=== PATIENT | female | born 1945 | race Two or more races ===

== ENCOUNTER 2017-08-21 10:00 | Inpatient (IN) | payer OTHER ==
[~2017-08-21] VITALS: Ht 160 cm; Wt 78.5 kg
[2017-08-22] MEDS ORDERED: CILOSTAZOL100 MG PO (07:43)
[2017-08-22] MEDS ORDERED: VALSARTAN160 MG PO (07:43)
[2017-08-22] MEDS ORDERED: GABAPENT PO (07:44)
[2017-08-22] MEDS ORDERED: GABAPENTIN400 MG PO (07:45)
[2017-08-22] MEDS ORDERED: [UNRECOGNIZED DRUG - OTHER] PO (07:46)
[2017-08-22] MEDS ORDERED: GLIPIZIDE ER10 MG PO (07:48)
[2017-08-22] MEDS ORDERED: FENOFIBRATE PO (07:49)
== END 2017-08-28 10:29 | disposition home or self-care (01) | DRG 330 ==
LOC: EDSTATUS 10:00 → ADM 10:00 → O/R 08-25 05:43 → SURG 08-25 05:43
PROVIDERS: Colon & Rectal Surgery
PROC: 0DN84ZZ Release Small Intestine, Percutaneous Endoscopic Approach (ICD-10-PCS; 2017-08-25)
PROC: 0DQ84ZZ Repair Small Intestine, Percutaneous Endoscopic Approach (ICD-10-PCS; 2017-08-25)
PROC: 0DJD8ZZ Inspection of Lower Intestinal Tract, Via Natural or Artificial Opening Endoscopic (ICD-10-PCS; 2017-08-25)
PROC: 4A033R1 Measurement of Arterial Saturation, Peripheral, Percutaneous Approach (ICD-10-PCS; 2017-08-25)
PROC: 0DTN4ZZ Resection of Sigmoid Colon, Percutaneous Endoscopic Approach (ICD-10-PCS; principal; 2017-08-25 07:00)
PROC: 3E0F7GC Introduction of Other Therapeutic Substance into Respiratory Tract, Via Natural or Artificial Opening (ICD-10-PCS; 2017-08-27)
DX: K57.32 Diverticulitis of large intestine without perforation or abscess without bleeding (principal); K56.51 Intestinal adhesions [bands], with partial obstruction; K91.71 Accidental puncture and laceration of a digestive system organ or structure during a digestive system procedure; E11.9 Type 2 diabetes mellitus without complications; D64.89 Other specified anemias; I10 Essential (primary) hypertension

== ENCOUNTER 2017-08-21 10:10 | Outpatient (CLI) | payer OTHER ==
[2017-08-22] MEDS ORDERED: VALSARTAN160 MG PO (07:43)
[2017-08-22] MEDS ORDERED: CILOSTAZOL100 MG PO (07:43)
[2017-08-22] MEDS ORDERED: GABAPENT PO (07:44)
[2017-08-22] MEDS ORDERED: GABAPENTIN400 MG PO (07:45)
[2017-08-22] MEDS ORDERED: [UNRECOGNIZED DRUG - OTHER] PO (07:46)
[2017-08-22] MEDS ORDERED: GLIPIZIDE ER10 MG PO (07:48)
[2017-08-22] MEDS ORDERED: FENOFIBRATE PO (07:49)
== END 2017-08-21 10:15 | disposition home or self-care (01) ==
LOC: RAD 10:10
DX: K57.32 Diverticulitis of large intestine without perforation or abscess without bleeding (principal); R10.32 Left lower quadrant pain; R15.9 Full incontinence of feces; K59.00 Constipation, unspecified; Z01.818 Encounter for other preprocedural examination

== ENCOUNTER 2020-10-02 06:50 | Day surgery (SDC) | payer OTHER ==
[~2020-10-02 06:50] MED LIST: AVAPRO75 MG PO; CILOSTAZOL100 MG PO; FENOFIBRATE PO; GABAPENT PO; GABAPENTIN400 MG PO; GLIPIZIDE ER10 MG PO; METFORMIN HCL750 MG PO; VALSARTAN160 MG PO; [UNRECOGNIZED DRUG - OTHER] PO
== END 2020-10-02 15:25 | disposition home or self-care (01) ==
LOC: CIR.AMB 06:50
PROVIDERS: ATTEND Colon & Rectal Surgery
DX: R15.9 Full incontinence of feces (principal); Z20.822 Contact with and (suspected) exposure to COVID-19
CPT/HCPCS: 64581; 95971; C1778

== ENCOUNTER 2020-10-21 09:00 | Day surgery (SDC) | payer OTHER | END 2020-10-21 13:20 | disposition home or self-care (01) | LOC: CIR.AMB 09:00 | PROVIDERS: ATTEND Colon & Rectal Surgery | DX: R15.9 Full incontinence of feces (principal) | CPT/HCPCS: 64590; 95971; L8679 ==